=== PATIENT | female | born 1975 | race Caucasian/White ===

== ENCOUNTER 2017-10-16 21:33 | Inpatient (IN) | payer BC ==
[~2017-10-16] VITALS: Ht 162.6 cm; Wt 103.0 kg
[2017-10-16 21:41] VITALS: BP 146/83
[2017-10-16] MEDS ORDERED: METFORMIN HCL500 MG PO (21:48)
[2017-10-16] MEDS ORDERED: CELEXA40 MG PO (21:48)
[2017-10-16] MEDS ORDERED: LIPITOR40 MG PO (21:49)
[2017-10-16] MEDS ORDERED: PRINIVIL20 MG PO (21:49)
[2017-10-16] MEDS ORDERED: ASPIR 8181 MG PO (21:49)
[2017-10-16] MEDS ORDERED: JANUVIA100 MG PO (21:50)
[2017-10-16] MEDS ORDERED: SYNTHROID175 MCG PO (21:50)
[2017-10-16 22:00] LABS: URINE BILIRUBIN NEGATIVE (Negative); URINE BLOOD NEGATIVE (Negative); URINE CLARITY CLEAR; URINE COLOR YELLOW; URINE GLUCOSE-RANDOM NEGATIVE (Negative); URINE KETONES NEGATIVE (Negative); URINE LEUKOCYTES-REFLEX 1+ (Negative); URINE NITRITE-REFLEX NEGATIVE (Negative); URINE PROTEIN NEGATIVE (Negative)
[2017-10-16 22:07] LABS: ABSOLUTE EOSINOPHILS 0.2 thou/uL (0.0-0.7); ABSOLUTE LYMPHOCYTES 2.2 thou/uL (0.8-5.3); ABSOLUTE MONOCYTES 0.6 thou/uL (0.0-1.2); ABSOLUTE NEUTROPHILS 7.6 thou/uL (1.6-8.1); BASOPHILS 0.4 %; EOSINOPHILS 1.5 %; HEMATOCRIT 37.5 % (37.0-47.0); HEMOGLOBIN 12.8 gm/dL (12.0-15.0); LYMPHOCYTES 20.5 %; MCH 28.5 pg (26.0-34.0); MCV 83.6 fL (80.0-100.0); MONOCYTES 5.6 %; MPV 8.4 fl. (7.2-11.1); NUCLEATED RBCS 0 /100WBC; PLATELET COUNT* 174 thou/uL (150-400); RBC 4.49 mil/uL (4.20-5.00); RDW-CV 14.3 % (10.5-14.5); WBC 10.5 thou/uL (4.0-11.0)
[2017-10-16 22:13] LABS: CASTS None Seen /LPF (None Seen); CRYSTALS None Seen /LPF (None Seen); MUCUS None Seen strn/LPF (None Seen); SQUAMOUS >10 Many /LPF (0-3)
[2017-10-16 22:14] LABS: URINE WBC-REFLEX 6-15 Few /HPF (0-5)
[2017-10-16 22:15] LABS: BACTERIA-REFLEX 1-9 Few /HPF (None Seen); URINE RBC None Seen /HPF (0-2)
[2017-10-16 22:21] LABS: CALCIUM 7.7 mg/dL (8.5-10.1); CREATININE 0.8 mg/dL (0.6-1.3); POTASSIUM 3.4 mmol/L (3.5-5.1)
[2017-10-16 22:24] LABS: ALBUMIN 3.7 g/dL (3.4-5.0); TOTAL BILIRUBIN 0.6 mg/dL (<0.1-1.0); TOTAL PROTEIN 7.9 g/dL (6.4-8.2)
[2017-10-17 00:29] VITALS: BP 148/72
[2017-10-17 01:00] VITALS: BP 129/71
--- NOTE | 2017-10-17 06:08 | NUR ---
PATIENT ARRIVED ON FLOOR FROM ER ABOUT 0045. PATIENT ADMISSION HISTORY AND ASSESSMENT WAS COMPLETED CHARTED. IV FLUIDS WERE STATED AT 100 ML/HR. MORPHINE DID NOT WORK FOR PAIN DOCTOR WAS NOTIFIED ORDER RECEIVED FOR FENTANYL. FENTANYL WAS GIVEN TWICE WITH GOOD RELIEF. WILL CONTINUE TO MONITOR.
[2017-10-17 08:07] VITALS: BP 119/71
--- NOTE | 2017-10-17 14:05 | NUR ---
CM SPOKE TO THE PATIENT TO DISCUSS HOME SITUATION, DISCHARGE PLANNING, AND TO INFORM OF THE ROLE OF CM. PATIENT ALERT, ORIENTED, AND INDEPENDENT WITH ADL'S. PATIENT RESIDES AT HOME ALONE. PATIENT WORKS AND DRIVES. PATIENT DOES NOT ANTICIPATE ANY DISCHARGE PLANNING NEEDS. CM WILL REMAIN AVAILABLE TO ASSIST AND FOLLOW NEEDED.
[2017-10-17 16:00] VITALS: BP 109/49
--- NOTE | 2017-10-17 16:02 | NUR ---
ASSUMED CARE OF PT AT 0715. PT REMAINS A&O X4 CALM AND COOPERATIVE. PT HAS HAD A LOT OF C/O ABD PAIN TODAY AND HAS BEEN TREATED WITH A COMBINATION OF OR AND IV PAIN MEDICATIONS. SHE ALSO HAD SOME C/O NAUSEA THAT WERE CONTROLLED WITH PRN IV ZOFRAN, NO REPORTS OF EMISIS AND SHE HAS HAD NO FURTHER C/O NAUSEA. MEDICATIONS ADMIINISTRERED PER JUN AND NURSING ASSESSMENT COMPLETED AND DOCUMENTED. HOURLY ROUNDING COMPLETED FOR COMFORT AND SAFTEY. NURSING WILL CONTINUE TO MONITOR.
[2017-10-17 20:00] VITALS: BP 104/64
[2017-10-18] VITALS: BP 110/62
[2017-10-18 02:06] LABS: GLYCOHEMOGLOBIN (HGB A1C) 8.5 % (4.8-5.6)
--- NOTE | 2017-10-18 05:31 | NUR ---
ASSUMED CARE OF PT AFTER REPORT @1930. PT A&OX4. VSS. PHYSICAL ASSESSMENT COMPLETED AND CHARTED.PT ON RA WITH 95% O2 SAT. PT COMPLAINED OF LOWER ABDOMINAL PAIN RADIATING TO THE BACK WITH PAIN SCALE OF 10/10-PAIN MEDS GIVEN WITH PARTIAL RELIEF.PT COMPLAINED OF SKIN IRRITATION AND ITCHING ON FACE, NECK AND ARMS-INFORMED DR CORTEZ WITH NEW ORDERS GIVEN. PT UP ADLIB. HS GOALS OF REST AND SAFETY ACHIEVED.
[2017-10-18 07:30] VITALS: BP 114/58
[2017-10-18 11:54] VITALS: BP 117/69
--- NOTE | 2017-10-18 13:20 | NUR ---
RECEIVED PT CARE 0700. SHE IS ALERT AND ORIENTED X4. VSS. UP AD GURDEEP IN ROOM WITH BATHROOM PRIVILEDGES. GAIT IS STEADY. O2 SAT 96% ON ROOM AIR. C/O LOWER ABDOMINAL PAIN. RATES /10. PRN PAIN MEDICATION GIVEN WITH PARTIAL RELIEF. IVF INFUSING. AM ASSESSMENT CHARTED. MEDS PER MAR. ENCOURAGING PATIENT TO GET OUT OF BED AND MOVE AROUND MORE THIS AFTERNOON. WILL CONTINUE TO MONITOR.
[2017-10-18 16:59] VITALS: BP 132/69
[2017-10-18 20:00] VITALS: BP 128/64
[2017-10-19 04:00] VITALS: BP 122/64
--- NOTE | 2017-10-19 05:16 | NUR ---
ASSUMED CARE OF PT AFTER REPORT AT 1930. PT A&OX4. VSS. PHYSICAL ASSESSMENT COMPLETED AND CHARTED. PT ON RA WITH 92% O2 SAT. PT ON M/S. PT UP ADLIB.PT C/O OF LOWER ABDOMINAL PAIN RADIATING TO THE BACK & HEADACHE WITH PAIN SCALE OF 5/10 & -PAIN MEDS GIVEN WITH PARTIAL RELIEF. PT HAD ONE TIME EPISODE OF N/V-TREATED WITH ZOFRAN. HOURLY ROUNDING OBSERVED. HS REST AND SAFETY GOALS ACHIEVED. CALL LIGHT WITHIN REACH. BED IN LOW POSITION.
--- NOTE | 2017-10-19 05:22 | NUR ---
AGREE WITH ASSESSMENT.
--- NOTE | 2017-10-19 07:25 | NUR ---
CHANGE OF SHIFT BEDSIDE REPORT GIVEN PATIENT SEEN IN BED ASLEEP ASSUMED PATIENT CARE
[2017-10-19 08:00] VITALS: BP 130/70
[2017-10-19 11:34] LABS: HEMATOCRIT 33.5 % (37.0-47.0); HEMOGLOBIN 11.3 gm/dL (12.0-15.0); MCH 28.3 pg (26.0-34.0); MCHC 33.6 g/dL (28.0-37.0); MCV 84.1 fL (80.0-100.0); MPV 8.8 fl. (7.2-11.1); RBC 3.99 mil/uL (4.20-5.00); RDW-CV 14.1 % (10.5-14.5); WBC 7.1 thou/uL (4.0-11.0)
[2017-10-19 11:47] LABS: CREATININE 0.8 mg/dL (0.6-1.3); POTASSIUM 3.7 mmol/L (3.5-5.1); TOTAL BILIRUBIN 0.3 mg/dL (<0.1-1.0); TOTAL PROTEIN 6.9 g/dL (6.4-8.2)
[2017-10-19 16:00] VITALS: BP 125/47
--- NOTE | 2017-10-19 18:19 | NUR ---
PATIENT LAYING IN BED AND VISITING WITH FAMILY HRR MS STATUS CTA/DIM/RA GOOD APPETITE LAST BM T-4 GOOD UO UP INDEPENDENT IV 22 GA R FA IVF NS AT 75CC/HR C/O ABD PAIN TREATED MORPHINE IVP AAND OXYCODONE AND RELIEVED ACCUCHECKS 87/101/108 CALL LIGHT IN REACH AND INSTRUCTION GIVEN AND FOLLOWED
[2017-10-19 19:20] VITALS: BP 112/64
[2017-10-20] VITALS: BP 137/74
--- NOTE | 2017-10-20 03:31 | NUR ---
ASSUMED CARE OF PT AT 1900. PT IS ALERT AND ORIENTED. VSS. PERRLA. PT IS UP AD GURDEEP. PT DID HAVE A LARGE BOWEL MOVEMENT THIS MORNING. PT IS MED SURG STATUS. PT IS SLEEPING QUIETLY IN BED. RESPIRATIONS ARE EVEN AND NONLABORED. WILL CONTINUE TO MONITOR PT.
[2017-10-20 09:00] VITALS: BP 127/67
[2017-10-20 12:00] VITALS: BP 156/80
--- NOTE | 2017-10-20 15:22 | NUR ---
ASSUMED PT CARE AT 0700 PT IS ALERT AND ORIENTED X 4 PT DENIES PAIN OR SOA ON RA, PT IS UP AD GURDEEP PT IS MEDICAL SURGICAL STATUS, PT FLUIDS HAVE BEEN DISCONTINUED, PT IS PLEASANT AND COOPERATIVE, PT IS TRANSFERING TO JOINT AND SPINE UNIT
--- NOTE | 2017-10-20 16:45 | NUR ---
PATIENT ARRIVED TO UNIT AT 1600. ALERT AND ORIENTED X 4. VITAL SIGNS STABLE ON ROOM AIR. UP AD GURDEEP IN ROOM AND TRANSFERRED TO BED. IV PATENT AND SALINE LOCKED. CALL LIGHT WITHIN REACH. NURSING WILL CONTINUE TO MONITOR.
[2017-10-20 17:00] VITALS: BP 155/87
[2017-10-20 20:30] VITALS: BP 147/88
--- NOTE | 2017-10-21 04:43 | NUR ---
PATIENT REMAINS ALERT AND ORIENTED X4 THROUGHOUT SHIFT. VITAL SIGNS STABLE ON ROOM AIR. IV PATENT IN THE RIGHT FOREARM SALINE LOCKED. MEDICATIONS INFUSED PER ORDERS. TRANSFERS AD GURDEEP TO THE RESTOOM. REPOSITIONING SELF IN BED. PAIN MANAGED WITH PO MEDICATION. DENIES NAUSEA. TOLERATING DIET. RESTING COMFORTABLY THROUGHOUT NIGHT. HOURLY ROUNDING COMPLETE. NURSING WILL CONTINUE TO MONITOR.
[2017-10-21] MEDS ORDERED: CIPRO500 MG PO (07:49)
[2017-10-21] MEDS ORDERED: MIRALAX17 GM PO (07:50)
[2017-10-21] MEDS ORDERED: COLACE100 MG PO (07:50)
[2017-10-21] MEDS ORDERED: FLAGYL500 MG PO (07:50)
[2017-10-21 08:00] VITALS: BP 151/77
[2017-10-21 13:12] VITALS: BP 151/77
[2017-10-21] MEDS ORDERED: PERCOCET PO (13:58)
--- NOTE | 2017-10-21 15:14 | NUR ---
PATIENT DISCHARGED FROM UNIT AT 1500. ALERT AND ORIENTED X 4. VITAL SIGNS STABLE ON ROOM AIR. AFEBRILE. UP AD GURDEEP AND AMBULATING IN HALLWAY. IV DISCONTINUED. DENIES PAIN AND NAUSEA AT THIS TIME. DISCHARGE INSTRUCTIONS, MEDICATION INFORMATION, AND SCRIPTS GIVEN TO PATIENT. LEFT WITH ALL BELONGINGS. PATIENT LEFT WITH FAMILY MEMBER VIA CAR.
[2017-10-21 15:21] VITALS: BP 151/77
--- NOTE | 2017-10-23 16:59 | CON ---
[address] [address] CONSULTATION Name: KLAUS LONG Room: [address] IN M.R.#: [id number] Admission: 10/16/17 Attend Phys: Theron Beck Discharge: 10/21/17 Date of : 75 Report #: [id number] THIS REPORT FOR: //name// CC: Raissa Ramos DATE OF SERVICE: 10/19/2017 ADDENDUM Consult number is [id number]. I have personally seen and examined the patient and reviewed labs and imaging. The patient with diverticulitis who has presented with abdominal pain. The initial CT on 10/17/2007 showed evidence of colonic thickening and inflammation at the level of sigmoid colon consistent with sigmoid diverticulitis. The patient has been on antibiotics including Cipro and Flagyl. She also reports that she has been constipated for the same. CT today shows mild improvement of the pericolonic inflammation. There is no evidence of abscess or free air noted. We will continue the current antibiotic therapy and treat her constipation, which I believe will improve her abdominal pain. <ELECTRONICALLY SIGNED> By: Ирина Lr MD 10/23/17 1659 1250 1950Farid Otoniel Lr MD /nt
--- NOTE | 2017-10-23 16:59 | CON ---
[address] [address] CONSULTATION Name: KLAUS LONG Room: [address] IN M.R.#: [id number] Admission: 10/16/17 Attend Phys: Tehron Beck Discharge: 10/21/17 Date of : 75 Report #: [id number] THIS REPORT FOR: //name// CC: Raissa Ramos DICTATED BY: Chelo Wadsworth [facility] DATE OF SERVICE: 10/19/2017 Please note at the time of this dictation, the patient was seen and physically examined by myself. REASON FOR CONSULTATION: Continuous abdominal pain, diverticulitis. HISTORY OF PRESENT ILLNESS: This 42-year-old female presented to the Emergency Room with worsening of her left lower abdominal pain associated with some nausea and some diarrhea. She denied any bright red blood or any melenic stool with this. The patient does state that a month ago, she had similar pain, but not as intense. She attributed it to a UTI and self-treated herself with increasing her fluids, cranberry juice and after about a week and a half, her symptoms resolved. The patient states she does not typically have constipation. Her bowels typically move once or twice a day, soft and formed with no evidence of any bright red blood or any melena. She has not had any issues with nausea and vomiting; however, since she has been hospitalized, likely related to her pain medicine, she has had significant nausea and vomiting negative for any bright red blood or coffee ground emesis at this time. She denies taking any NSAIDs as well. ALLERGIES: SULFA AND LATEX. MEDICATIONS: From home include Celexa, Glucophage, Prinivil, aspirin, Lipitor, Synthroid and Januvia. PAST MEDICAL HISTORY: Some depression, type 1 diabetes, hypercholesterolemia and hypothyroid. The patient has been poorly controlled with her diabetes as well. PAST SURGICAL HISTORY: Thyroidectomy, cholecystectomy, hysterectomy and bilateral carpal tunnel. FAMILY HISTORY: Negative for any GI or female cancers. SOCIAL HISTORY: Denies any alcohol, tobacco or [place] [address] CONSULTATION Name: KLAUS LONG Room: [address] IN [facility]#: [id number] Admission: 10/16/17 Attend Phys: Theron Beck Discharge: 10/21/17 Date of : 75 Report #: [id number] REVIEW OF SYSTEMS: Twelve-point review of systems is essentially negative except what is mentioned in the HPI. PHYSICAL EXAMINATION: VITAL SIGNS: Temperature 36.7, pulse 64, respirations 18, blood pressure 130/70. HEART: Regular rate and rhythm. LUNGS: Clear. ABDOMEN: Soft, positive bowel sounds in all 4 quadrants with no masses or tenderness noted. LABORATORY DATA: On admission, hemoglobin 12.8, hematocrit 37.5, white count is 10.5, platelets 174. Sodium 139, potassium 3.4, chloride 101, CO2 31, BUN is 15, creatinine 0.8, GFR 79, glucose is 170. CT initially showed on the day of admission, mild thickening of the mid sigmoid colon with minimal stranding surrounding the area with some diverticulitis noted, otherwise negative with moderate stool noted throughout the colon as well. IMPRESSION: 1. Abdominal pain, worsening. 2. Diverticulitis. 3. Nausea and vomiting, likely secondary to pain medicine and that has been discontinued. 4. Diabetes, poorly controlled. PLAN: 1. Continue her antibiotics, Cipro and Flagyl. 2. Dulcolax [address] scan being repeated later this morning secondary to worsening of her pain and nausea. 4. Further recommendations to be made once the CT has been reviewed. Thank you for allowing us to participate in this patient's care. Please do not hesitate to call with any questions in regard to this consult. <ELECTRONICALLY SIGNED> By: Ирина Lr MD 10/23/17 1659 [id number] [id number] Lr MD /nt
== END 2017-10-21 15:00 | disposition home or self-care (01) | DRG 392 ==
LOC: M.ERS 21:33 → M.2W 23:57 → M.TBA-ER 23:57 → M.2W 10-17 00:40 → M.ORTHSURG 10-20 16:34
PROVIDERS: Internal Medicine; Nurse Practitioner Adult Health; Physician Assistant; ADMIT Internal Medicine
DX: K57.32 Diverticulitis of large intestine without perforation or abscess without bleeding (principal); N39.0 Urinary tract infection, site not specified; R11.2 Nausea with vomiting, unspecified; E89.0 Postprocedural hypothyroidism; E10.65 Type 1 diabetes mellitus with hyperglycemia; E78.00 Pure hypercholesterolemia, unspecified; F32.9 Major depressive disorder, single episode, unspecified; K59.00 Constipation, unspecified; I10 Essential (primary) hypertension; T40.2X5A Adverse effect of other opioids, initial encounter; T40.4X5A Adverse effect of other synthetic narcotics, initial encounter; Y92.89 Other specified places as the place of occurrence of the external cause; Z90.49 Acquired absence of other specified parts of digestive tract; Z88.2 Allergy status to sulfonamides; Z79.2 Long term (current) use of antibiotics; Z91.040 Latex allergy status; Z90.710 Acquired absence of both cervix and uterus

== ENCOUNTER 2018-02-25 16:53 | Emergency (ER) | payer BC ==
[~2018-02-25] VITALS: Ht 162.6 cm; Wt 102.1 kg
[~2018-02-25 16:53] MED LIST: ASPIR 8181 MG PO; CELEXA40 MG PO; CIPRO500 MG PO; COLACE100 MG PO; FLAGYL500 MG PO; JANUVIA100 MG PO; LIPITOR40 MG PO; METFORMIN HCL500 MG PO; MIRALAX17 GM PO; PERCOCET PO; PRINIVIL20 MG PO; SYNTHROID175 MCG PO
[2018-02-25 16:59] VITALS: BP 147/89
[2018-02-25] MEDS ORDERED: TUMS PO (17:01)
== END 2018-02-25 17:35 | disposition home or self-care (01) ==
LOC: M.ERS 16:53
DX: S50.02XA Contusion of left elbow, initial encounter (principal); E11.9 Type 2 diabetes mellitus without complications; E89.0 Postprocedural hypothyroidism; Z91.040 Latex allergy status; Z90.49 Acquired absence of other specified parts of digestive tract; Z90.710 Acquired absence of both cervix and uterus; Z88.2 Allergy status to sulfonamides; W01.0XXA Fall on same level from slipping, tripping and stumbling without subsequent striking against object, initial encounter; Y93.89 Activity, other specified; Y92.89 Other specified places as the place of occurrence of the external cause; Y99.8 Other external cause status